=== PATIENT | male | born 1955 | race Caucasian/White ===

== ENCOUNTER 2017-02-26 17:22 | Inpatient (IN) | payer MEDICARE, OTHER ==
[~2017-02-26] VITALS: Ht 175.3 cm; Wt 83.6 kg
[~2017-02-26 17:22] MED LIST: CARB1TAB3 PO; CEPH-368 PO; HYDR-3240 PO; IBUP200C PO
[2017-02-26] MEDS ORDERED: CARBIDOPA/LEVODOPA 25 MG/250 MG TABLET PO ONE (18:00)
[2017-02-26] MEDS ORDERED: BISACODYL 10 MG SUPP PR PRN (20:00)
[2017-02-26] MEDS ORDERED: ACETAMINOPHEN 325 MG TABLET PO PRN (20:00)
[2017-02-26] MEDS ORDERED: CARBIDOPA/LEVODOPA 25 MG/250 MG TABLET PO SCH ×2 (21:00)
[2017-02-26] MEDS: ENOXAPARIN 40 MG/0.4 ML SQ SCH (21:28)
[2017-02-26] MEDS: HYDROcodone/APAP 5/325 TABLET PO PRN (21:33)
[2017-02-26 21:57] VITALS: BP 132/87
[2017-02-27] MEDS: CARBIDOPA/LEVODOPA 25 MG/250 MG TABLET PO SCH ×8 (00:25→21:16)
[2017-02-27 02:12] VITALS: BP 107/70
[2017-02-27 05:33] LABS: HEMOGLOBIN 14.3 g/dL (13.7-18.0)
[2017-02-27 05:43] LABS: ASPARTATE AMINO TRANSFERASE 14 U/L (15-37); BLOOD UREA NITROGEN 18 mg/dL (7-18)
[2017-02-27 07:42] VITALS: BP 110/73
[2017-02-27] MEDS: HYDROcodone/APAP 5/325 TABLET PO PRN ×3 (11:39→23:39)
[2017-02-27 13:01] VITALS: BP 110/69
[2017-02-27 19:00] VITALS: BP 118/76
[2017-02-27] MEDS: ENOXAPARIN 40 MG/0.4 ML SQ SCH (21:17)
[2017-02-28] MEDS: CARBIDOPA/LEVODOPA 25 MG/250 MG TABLET PO SCH ×10 (00:35→22:08)
[2017-02-28 02:40] VITALS: BP 121/82
[2017-02-28 07:28] VITALS: BP 105/88
[2017-02-28] MEDS: HYDROcodone/APAP 5/325 TABLET PO PRN ×3 (10:53→18:28)
[2017-02-28 13:20] VITALS: BP 130/77
[2017-02-28 19:36] VITALS: BP 112/73
[2017-02-28] MEDS: ENOXAPARIN 40 MG/0.4 ML SQ SCH (19:54)
[2017-03-01] MEDS: HYDROcodone/APAP 5/325 TABLET PO PRN ×5 (01:57→20:05)
[2017-03-01 02:45] VITALS: BP 115/73
[2017-03-01 05:43] LABS: HEMOGLOBIN 15.1 g/dL (13.7-18.0)
[2017-03-01 05:53] LABS: BLOOD UREA NITROGEN 16 mg/dL (7-18)
[2017-03-01] MEDS: CYCLOBENZAPRINE 10 MG TABLET PO PRN ×2 (05:54→16:42)
[2017-03-01 07:02] VITALS: BP 146/87
[2017-03-01] MEDS: CARBIDOPA/LEVODOPA 25 MG/250 MG TABLET PO SCH ×8 (08:15→21:50)
[2017-03-01 14:12] VITALS: BP 105/68
[2017-03-01 19:06] VITALS: BP 103/66
[2017-03-01] MEDS: ENOXAPARIN 40 MG/0.4 ML SQ SCH (20:06)
[2017-03-01] MEDS: DOCUSATE 100 MG CAPSULE PO PRN (20:11)
[2017-03-02 02:29] VITALS: BP 110/73
[2017-03-02] MEDS: HYDROcodone/APAP 5/325 TABLET PO PRN ×3 (06:16→21:38)
[2017-03-02] MEDS: CARBIDOPA/LEVODOPA 25 MG/250 MG TABLET PO SCH ×8 (07:34→22:00)
[2017-03-02 07:46] VITALS: BP 131/87
[2017-03-02] MEDS: CYCLOBENZAPRINE 10 MG TABLET PO PRN (12:20)
[2017-03-02 13:03] VITALS: BP 131/85
[2017-03-02 19:22] VITALS: BP 116/78
[2017-03-02] MEDS: ENOXAPARIN 40 MG/0.4 ML SQ SCH (20:16)
[2017-03-03 04:02] VITALS: BP 147/87
[2017-03-03 06:02] LABS: HEMOGLOBIN 15.1 g/dL (13.7-18.0)
[2017-03-03 06:14] LABS: BLOOD UREA NITROGEN 20 mg/dL (7-18)
[2017-03-03 07:43] VITALS: BP 157/97
[2017-03-03] MEDS: HYDROcodone/APAP 5/325 TABLET PO PRN ×2 (09:10→22:14)
[2017-03-03] MEDS: CARBIDOPA/LEVODOPA 25 MG/250 MG TABLET PO SCH ×8 (09:10→22:14)
[2017-03-03] MEDS: CYCLOBENZAPRINE 10 MG TABLET PO PRN (12:27)
[2017-03-03 15:27] VITALS: BP 109/73
[2017-03-03] MEDS: CARBIDOPA/LEVODOPA CR 25 MG/100 MG TABLET PO SCH ×2 (16:46→22:14)
[2017-03-03 19:36] VITALS: BP 103/71
[2017-03-03] MEDS: ENOXAPARIN 40 MG/0.4 ML SQ SCH (20:03)
[2017-03-03] MEDS: DOCUSATE 100 MG CAPSULE PO PRN (22:14)
[2017-03-04 02:08] VITALS: BP 114/74
[2017-03-04] MEDS: HYDROcodone/APAP 5/325 TABLET PO PRN ×2 (06:25→19:46)
[2017-03-04] MEDS: CARBIDOPA/LEVODOPA CR 25 MG/100 MG TABLET PO SCH ×3 (06:25→22:29)
[2017-03-04 07:45] VITALS: BP 132/85
[2017-03-04] MEDS: CARBIDOPA/LEVODOPA 25 MG/250 MG TABLET PO SCH ×8 (08:17→22:29)
[2017-03-04] MEDS: DOCUSATE 100 MG CAPSULE PO PRN (08:18)
[2017-03-04 13:52] VITALS: BP 117/80
[2017-03-04] MEDS: CYCLOBENZAPRINE 10 MG TABLET PO PRN (14:57)
[2017-03-04 19:15] VITALS: BP 105/68
[2017-03-04] MEDS: ENOXAPARIN 40 MG/0.4 ML SQ SCH (20:27)
[2017-03-05 02:09] VITALS: BP 106/65
[2017-03-05] MEDS: CARBIDOPA/LEVODOPA CR 25 MG/100 MG TABLET PO SCH ×3 (06:07→22:21)
[2017-03-05] MEDS: HYDROcodone/APAP 5/325 TABLET PO PRN ×2 (06:10→20:32)
[2017-03-05 07:10] VITALS: BP 117/80
[2017-03-05] MEDS: CARBIDOPA/LEVODOPA 25 MG/250 MG TABLET PO SCH ×7 (08:16→22:21)
[2017-03-05] MEDS: CYCLOBENZAPRINE 10 MG TABLET PO PRN ×2 (08:22→23:48)
[2017-03-05] MEDS: AZILECT 0.5 MG PO SCH (11:30)
[2017-03-05 14:14] VITALS: BP 108/79
[2017-03-05 19:49] VITALS: BP 114/69
[2017-03-05] MEDS: ENOXAPARIN 40 MG/0.4 ML SQ SCH (20:37)
[2017-03-06 01:43] VITALS: BP 120/77
[2017-03-06] MEDS: CARBIDOPA/LEVODOPA CR 25 MG/100 MG TABLET PO SCH ×3 (05:49→22:25)
[2017-03-06 07:01] VITALS: BP 102/66
[2017-03-06] MEDS: AZILECT 0.5 MG PO SCH (08:38)
[2017-03-06] MEDS: CARBIDOPA/LEVODOPA 25 MG/250 MG TABLET PO SCH ×8 (08:38→22:25)
[2017-03-06] MEDS: DOCUSATE 100 MG CAPSULE PO PRN ×2 (11:51→17:57)
[2017-03-06] MEDS: CYCLOBENZAPRINE 10 MG TABLET PO PRN (12:36)
[2017-03-06 13:47] VITALS: BP 113/71
[2017-03-06 19:05] VITALS: BP 112/73
[2017-03-06] MEDS: ENOXAPARIN 40 MG/0.4 ML SQ SCH (19:51)
[2017-03-07 00:35] VITALS: BP 112/71
[2017-03-07] MEDS: HYDROcodone/APAP 5/325 TABLET PO PRN (04:51)
[2017-03-07] MEDS: CARBIDOPA/LEVODOPA CR 25 MG/100 MG TABLET PO SCH ×3 (06:11→22:03)
[2017-03-07 07:29] VITALS: BP 128/82
[2017-03-07] MEDS: CARBIDOPA/LEVODOPA 25 MG/250 MG TABLET PO SCH ×8 (08:06→22:03)
[2017-03-07] MEDS: AZILECT 0.5 MG PO SCH (08:06)
[2017-03-07] MEDS: CYCLOBENZAPRINE 10 MG TABLET PO PRN ×2 (08:11→17:17)
[2017-03-07] MEDS ORDERED: POLYETHYLENE GLYCOL 17 GM PACKET NG PRN (11:00)
[2017-03-07] MEDS: SENNOSIDES 8.6 MG TABLET PO SCH (12:04)
[2017-03-07] MEDS: DOCUSATE 100 MG CAPSULE PO SCH (12:04)
[2017-03-07] MEDS: AZILECT 1 MG HOMEMEDPO SCH (12:30)
[2017-03-07 13:21] VITALS: BP 135/81
[2017-03-07 19:16] VITALS: BP 130/82
[2017-03-07] MEDS: ENOXAPARIN 40 MG/0.4 ML SQ SCH (19:41)
[2017-03-08 00:38] VITALS: BP 109/70
[2017-03-08] MEDS: HYDROcodone/APAP 5/325 TABLET PO PRN ×2 (05:54→21:45)
[2017-03-08] MEDS: CARBIDOPA/LEVODOPA CR 25 MG/100 MG TABLET PO SCH ×3 (05:54→20:49)
[2017-03-08 07:30] VITALS: BP 126/82
[2017-03-08] MEDS: CARBIDOPA/LEVODOPA 25 MG/250 MG TABLET PO SCH ×8 (08:17→22:13)
[2017-03-08] MEDS: DOCUSATE 100 MG CAPSULE PO SCH (08:17)
[2017-03-08] MEDS: AZILECT 1 MG HOMEMEDPO SCH (08:18)
[2017-03-08] MEDS: SENNOSIDES 8.6 MG TABLET PO SCH (08:18)
[2017-03-08 13:32] VITALS: BP 136/81
[2017-03-08 19:11] VITALS: BP 116/74
[2017-03-08] MEDS: ENOXAPARIN 40 MG/0.4 ML SQ SCH (20:50)
[2017-03-09 02:01] VITALS: BP 115/72
[2017-03-09] MEDS: CARBIDOPA/LEVODOPA CR 25 MG/100 MG TABLET PO SCH ×3 (06:20→22:02)
[2017-03-09 07:35] VITALS: BP 102/67
[2017-03-09] MEDS: CARBIDOPA/LEVODOPA 25 MG/250 MG TABLET PO SCH ×8 (08:40→23:30)
[2017-03-09] MEDS: DOCUSATE 100 MG CAPSULE PO SCH (08:40)
[2017-03-09] MEDS: CYCLOBENZAPRINE 10 MG TABLET PO PRN (08:40)
[2017-03-09] MEDS: AZILECT 1 MG HOMEMEDPO SCH (08:40)
[2017-03-09] MEDS: SENNOSIDES 8.6 MG TABLET PO SCH (08:42)
[2017-03-09 13:56] VITALS: BP 120/79
[2017-03-09 19:08] VITALS: BP 113/72
[2017-03-09] MEDS: ENOXAPARIN 40 MG/0.4 ML SQ SCH (19:36)
[2017-03-09] MEDS: HYDROcodone/APAP 5/325 TABLET PO PRN (21:25)
[2017-03-10 05:01] VITALS: BP 126/85
[2017-03-10] MEDS: CARBIDOPA/LEVODOPA CR 25 MG/100 MG TABLET PO SCH ×2 (05:54→14:16)
[2017-03-10] MEDS: CYCLOBENZAPRINE 10 MG TABLET PO PRN (05:57)
[2017-03-10 07:28] VITALS: BP 138/83
[2017-03-10] MEDS: HYDROcodone/APAP 5/325 TABLET PO PRN ×2 (07:31→17:56)
[2017-03-10] MEDS: CARBIDOPA/LEVODOPA 25 MG/250 MG TABLET PO SCH ×5 (07:31→17:53)
[2017-03-10] MEDS: SENNOSIDES 8.6 MG TABLET PO SCH (09:00)
[2017-03-10] MEDS: DOCUSATE 100 MG CAPSULE PO SCH (09:00)
[2017-03-10] MEDS: AZILECT 1 MG HOMEMEDPO SCH (09:00)
[2017-03-10 13:10] VITALS: BP 128/84
[2017-03-10] MEDS ORDERED: RASA1TAB PO (16:18)
[2017-03-10] MEDS ORDERED: POLY17PO5 PO (16:18)
[2017-03-10] MEDS ORDERED: ACET325T14 PO (16:49)
[2017-03-10] MEDS ORDERED: CARB1TAB47 PO (16:50)
[2017-03-10] MEDS ORDERED: CYCL5TAB PO (16:50)
[2017-03-10] MEDS ORDERED: DOCU100C8 PO (16:51)
[2017-03-10] MEDS ORDERED: SENN8.6T98 PO (16:51)
[2017-03-10] MEDS ORDERED: BISA10SU54 PR (16:52)
[2017-03-10] MEDS ORDERED: ENOX40SY4 SQ (16:52)
== END 2017-03-10 18:05 | DRG 948 ==
LOC: ED 19:32 → EDIP 19:33 → 3NE 19:54
PROVIDERS: ADMIT Internal Medicine
DX: R53.1 Weakness (principal); E87.1 Hypo-osmolality and hyponatremia; E44.0 Moderate protein-calorie malnutrition; G20 Parkinson's disease; F43.23 Adjustment disorder with mixed anxiety and depressed mood; F32.9 Major depressive disorder, single episode, unspecified; N20.9 Urinary calculus, unspecified; J44.9 Chronic obstructive pulmonary disease, unspecified; H04.122 Dry eye syndrome of left lacrimal gland; Z87.442 Personal history of urinary calculi; Z88.8 Allergy status to other drugs, medicaments and biological substances; Z68.27 Body mass index [BMI] 27.0-27.9, adult; Z80.1 Family history of malignant neoplasm of trachea, bronchus and lung
CPT/HCPCS: 36415; 80048; 80053; 81003; 83735; 84100; 84443; 85025; 93005; J1650; 92523-GN

== ENCOUNTER 2017-11-21 06:35 | Emergency (ER) | payer OTHER ==
[~2017-11-21] VITALS: Ht 175.3 cm; Wt 74.0 kg
[~2017-11-21 06:35] MED LIST changes: +ACET325T14 PO; +BISA10SU54 PR; +CARB1TAB47 PO; +CYCL5TAB PO; +DOCU100C33 PO; +ENOX40SY4 SQ; -IBUP200C PO; +IBUP200C5 PO; +POLY17PO5 PO; +RASA1TAB2 PO; +SENN8.6T98 PO
[2017-11-21] MEDS ORDERED: HYDROcodone/APAP 5/325 TABLET ONE ×2 (07:10→09:09)
[2017-11-21] MEDS ORDERED: HYDROcodone/APAP 5/325 TABLET PO ONE ×2 (07:30→09:30)
[2017-11-21 08:12] VITALS: BP 150/82
== END 2017-11-21 09:16 | disposition home or self-care (01) ==
LOC: ED 07:39
DX: M54.2 Cervicalgia (principal); M25.512 Pain in left shoulder; G20 Parkinson's disease
CPT/HCPCS: 93005; 99283

== ENCOUNTER 2018-06-09 14:00 | Emergency (ER) | payer OTHER ==
[~2018-06-09] VITALS: Ht 175.3 cm; Wt 67.9 kg
[2018-06-09 14:43] LABS: BASOPHILS # (AUTO) 0.05 x10^3/uL (0-0.1); BASOPHILS % (AUTO) 1 % (0-1); EOSINOPHILS # (AUTO) 0.13 x10^3/uL (0-0.4); EOSINOPHILS % (AUTO) 2 % (1-7); LYMPHOCYTES # (AUTO) 1.27 x10^3/uL (1-3.4); LYMPHOCYTES % (AUTO) 17 % (22-44); MD NO; MEAN CORPUSCULAR HEMOGLOBIN 33.2 pg (27.5-34.5); MEAN CORPUSCULAR HGB CONC 33.3 g/dL (33.2-36.2); MEAN CORPUSCULAR VOLUME 99.8 fL (81-97); MEAN PLATELET VOLUME 8.6 fL (7.4-10.4); MONOCYTES # (AUTO) 0.45 x10^3/uL (0.2-0.8); MONOCYTES % (AUTO) 6 % (2-9); NEUTROPHILS # (AUTO) 5.77 x10^3/uL (1.8-6.8); NEUTROPHILS % (AUTO) 75 % (42-75); PLATELET COUNT 220 x10^3/uL (130-400); RED BLOOD COUNT 4.79 x10^6/uL (4.38-5.82); RED CELL DISTRIBUTION WIDTH 13.6 % (9.4-14.8)
[2018-06-09 14:45] LABS: ALBUMIN 3.9 g/dL (3.4-5.0); ANION GAP 5 mmol/L (5-15); CHLORIDE 109 mmol/L (98-107)
[2018-06-09 14:50] LABS: ALANINE AMINOTRANSFERASE 16 U/L (12-78); ALKALINE PHOSPHATASE 119 U/L (45-117); BILIRUBIN,TOTAL 0.6 mg/dL (0.2-1.0); CREATININE 0.68 mg/dL (0.7-1.3); TOTAL PROTEIN 7.5 g/dL (6.4-8.2); TROPONIN I < 0.015 ng/mL (0.000-0.045)
[2018-06-09 16:06] VITALS: BP 134/88
[2018-06-14] MEDS ORDERED: SENN1TAB7 PO (11:28)
[2018-06-14] MEDS ORDERED: BISA10SU65 PR (11:28)
[2018-06-14] MEDS ORDERED: TAMS-11 PO (11:28)
[2018-06-14] MEDS ORDERED: DOCU-131 PO (11:28)
== END 2018-06-09 17:02 | disposition home or self-care (01) ==
LOC: ED 16:01
DX: R06.00 Dyspnea, unspecified (principal); I10 Essential (primary) hypertension
CPT/HCPCS: 36415; 71045; 80053; 83880; 84484; 85025; 85379; 93005; 99285

== ENCOUNTER 2018-07-12 18:35 | Inpatient (IN) | payer OTHER ==
[~2018-07-12] VITALS: Ht 175.3 cm; Wt 74.2 kg
[~2018-07-12 18:35] MED LIST changes: +BISA10SU65 PR; +DOCU-131 PO; +IBUP-1623 PO; -IBUP200C5 PO; +SENN1TAB7 PO; +TAMS-11 PO
[2018-07-12 19:07] LABS: BASOPHILS # (AUTO) 0.08 x10^3/uL (0-0.1); BASOPHILS % (AUTO) 1 % (0-1); EOSINOPHILS # (AUTO) 0.17 x10^3/uL (0-0.4); EOSINOPHILS % (AUTO) 2 % (1-7); LYMPHOCYTES # (AUTO) 0.73 x10^3/uL (1-3.4); LYMPHOCYTES % (AUTO) 9 % (22-44); MD NO; MEAN CORPUSCULAR HEMOGLOBIN 33.7 pg (27.5-34.5); MEAN CORPUSCULAR HGB CONC 34.2 g/dL (33.2-36.2); MEAN CORPUSCULAR VOLUME 98.8 fL (81-97); MEAN PLATELET VOLUME 8.3 fL (7.4-10.4); MONOCYTES # (AUTO) 0.54 x10^3/uL (0.2-0.8); MONOCYTES % (AUTO) 7 % (2-9); NEUTROPHILS # (AUTO) 6.23 x10^3/uL (1.8-6.8); NEUTROPHILS % (AUTO) 80 % (42-75); PLATELET COUNT 218 x10^3/uL (130-400); RED CELL DISTRIBUTION WIDTH 13.7 % (9.4-14.8)
[2018-07-12 19:14] LABS: ALANINE AMINOTRANSFERASE 12 U/L (12-78); ALBUMIN 3.4 g/dL (3.4-5.0); ANION GAP 9 mmol/L (5-15); CALCIUM 8.3 mg/dL (8.5-10.1); CHLORIDE 110 mmol/L (98-107); CREATININE 0.93 mg/dL (0.7-1.3)
[2018-07-12 19:16] LABS: ALKALINE PHOSPHATASE 74 U/L (45-117); BILIRUBIN,TOTAL 0.9 mg/dL (0.2-1.0); TOTAL PROTEIN 6.7 g/dL (6.4-8.2)
[2018-07-12 20:12] LABS: CULTURE INDICATED? YES; MICROSCOPIC INDICATED
[2018-07-12] MEDS ORDERED: CEFTRIAXONE PMX 1GM/50ML 50 ML ONE (21:50)
[2018-07-12] MEDS ORDERED: CEFTRIAXONE 1,000 MG in SODIUM CHLORIDE 0.9% 50 ML IV ONE (22:00)
[2018-07-12] MEDS ORDERED: LORazepam 2 MG/ML, 1ML ONE (22:04)
[2018-07-12] MEDS ORDERED: DEXTROSE 5% 100 ML IV SCH (22:30)
[2018-07-12] MEDS ORDERED: DOCUSATE 100 MG CAPSULE PO PRN (22:30)
[2018-07-12] MEDS: DEXTROSE 5% 1,000 ML IV SCH (22:30)
[2018-07-12] MEDS ORDERED: ONDANSETRON 2MG/ML, 2ML IVPush PRN (22:30)
[2018-07-12] MEDS ORDERED: BISACODYL 10 MG SUPP PR PRN (22:30)
[2018-07-12] MEDS ORDERED: ONDANSETRON ODT 4 MG PO PRN (22:30)
[2018-07-12] MEDS ORDERED: POTASSIUM CHLORIDE 20 MEQ TAB.ER.PRT PO ONE (22:30)
[2018-07-12] MEDS ORDERED: LORazepam 2 MG/ML, 1ML IVPush ONE (22:30)
[2018-07-12] MEDS: CARBIDOPA/LEVODOPA 25 MG/250 MG TABLET PO SCH (23:43)
[2018-07-12] MEDS: HEPARIN 5,000 UNITS/ML, 1ML SQ SCH (23:43)
[2018-07-12] MEDS: PHENAZOPYRIDINE 200 MG TABLET PO SCH (23:43)
[2018-07-13] VITALS: BP 129/79
[2018-07-13] MEDS: CARBIDOPA/LEVODOPA 25 MG/250 MG TABLET PO SCH ×11 (02:04→22:14)
[2018-07-13 02:33] VITALS: BP 148/79
[2018-07-13 05:55] LABS: CHLORIDE 109 mmol/L (98-107)
[2018-07-13] MEDS: HEPARIN 5,000 UNITS/ML, 1ML SQ SCH ×3 (06:03→22:14)
[2018-07-13 06:05] LABS: ANION GAP 8 mmol/L (5-15); CALCIUM 8.1 mg/dL (8.5-10.1); CREATININE 0.55 mg/dL (0.7-1.3)
[2018-07-13 07:57] VITALS: BP 112/71
[2018-07-13] MEDS: TAMSULOSIN 0.4 MG CAP.ER.24H PO SCH (08:04)
[2018-07-13] MEDS: PHENAZOPYRIDINE 200 MG TABLET PO SCH ×3 (08:04→20:20)
[2018-07-13] MEDS: SENNA/DOCUSATE TABLET PO SCH (08:04)
[2018-07-13] MEDS: DEXTROSE 5% 1,000 ML IV SCH (10:10)
[2018-07-13 13:59] VITALS: BP 110/70
[2018-07-13] MEDS: POTASSIUM CHLORIDE 20 MEQ TAB.ER.PRT PO SCH ×2 (14:04→18:00)
[2018-07-13] MEDS ORDERED: LORazepam 2 MG/ML, 1ML IVPush ONE (18:00)
[2018-07-13 18:42] VITALS: BP 111/71
[2018-07-13] MEDS ORDERED: DEXTROSE 5% 1,000 ML IV SCH (22:30)
[2018-07-14] MEDS: CARBIDOPA/LEVODOPA 25 MG/250 MG TABLET PO SCH ×12 (00:25→22:04)
[2018-07-14 01:22] VITALS: BP 135/81
[2018-07-14 05:56] LABS: ANION GAP 4 mmol/L (5-15); CALCIUM 8.3 mg/dL (8.5-10.1); CHLORIDE 111 mmol/L (98-107); CREATININE 0.58 mg/dL (0.7-1.3)
[2018-07-14] MEDS: HEPARIN 5,000 UNITS/ML, 1ML SQ SCH ×3 (06:33→22:05)
[2018-07-14] MEDS: SENNA/DOCUSATE TABLET PO SCH (08:10)
[2018-07-14] MEDS: TAMSULOSIN 0.4 MG CAP.ER.24H PO SCH (08:10)
[2018-07-14] MEDS: PHENAZOPYRIDINE 200 MG TABLET PO SCH ×3 (08:10→20:09)
[2018-07-14 08:44] VITALS: BP 104/64
[2018-07-14 13:49] VITALS: BP 104/63
[2018-07-14 19:55] VITALS: BP 113/73
[2018-07-15] MEDS: CARBIDOPA/LEVODOPA 25 MG/250 MG TABLET PO SCH ×9 (00:06→16:13)
[2018-07-15] MEDS: ACETAMINOPHEN 325 MG TABLET PO PRN ×2 (00:23→05:11)
[2018-07-15 00:52] VITALS: BP 127/76
[2018-07-15] MEDS: HEPARIN 5,000 UNITS/ML, 1ML SQ SCH (06:02)
[2018-07-15 07:07] VITALS: BP 120/76
[2018-07-15] MEDS: PHENAZOPYRIDINE 200 MG TABLET PO SCH ×2 (08:11→16:13)
[2018-07-15] MEDS: TAMSULOSIN 0.4 MG CAP.ER.24H PO SCH (08:11)
[2018-07-15] MEDS: SENNA/DOCUSATE TABLET PO SCH (08:12)
[2018-07-15] MEDS ORDERED: PHEN-583 PO (11:55)
[2018-07-15 12:13] VITALS: BP 104/64
== END 2018-07-15 16:35 | disposition home health service (06) | DRG 690 ==
LOC: ED 20:55 → EDIP 20:56 → 3NE 22:50
PROVIDERS: ADMIT Hospitalist; ATTEND Hospitalist
DX: N30.90 Cystitis, unspecified without hematuria (principal); E87.0 Hyperosmolality and hypernatremia; R33.9 Retention of urine, unspecified; E87.6 Hypokalemia; G20 Parkinson's disease; I10 Essential (primary) hypertension; K59.00 Constipation, unspecified; N40.0 Benign prostatic hyperplasia without lower urinary tract symptoms; Z87.442 Personal history of urinary calculi
CPT/HCPCS: 36415; 51702; 80048; 80053; 81001; 83735; 84100; 85025; 87086; 96374; 96375; 99285; J0696; J1644; J2060

== ENCOUNTER 2018-07-27 10:57 | Emergency (ER) | payer OTHER ==
[~2018-07-27] VITALS: Ht 175.3 cm; Wt 63.6 kg
[~2018-07-27 10:57] MED LIST changes: +PHEN-583 PO
[2018-07-27] MEDS ORDERED: SODIUM CHLORIDE 0.9% 1,000ML IVBOLUS ONE (11:30)
[2018-07-27] MEDS ORDERED: SODIUM CHLORIDE FLUSH 10ML SYR IVF ONE (11:30)
[2018-07-27 11:56] LABS: BASOPHILS # (AUTO) 0.03 x10^3/uL (0-0.1); BASOPHILS % (AUTO) 1 % (0-1); EOSINOPHILS # (AUTO) 0.08 x10^3/uL (0-0.4); EOSINOPHILS % (AUTO) 1 % (1-7); LYMPHOCYTES # (AUTO) 1.12 x10^3/uL (1-3.4); LYMPHOCYTES % (AUTO) 16 % (22-44); MD NO; MEAN CORPUSCULAR HEMOGLOBIN 33.1 pg (27.5-34.5); MEAN CORPUSCULAR HGB CONC 33.3 g/dL (33.2-36.2); MEAN CORPUSCULAR VOLUME 99.3 fL (81-97); MEAN PLATELET VOLUME 7.7 fL (7.4-10.4); MONOCYTES # (AUTO) 0.38 x10^3/uL (0.2-0.8); MONOCYTES % (AUTO) 5 % (2-9); NEUTROPHILS # (AUTO) 5.45 x10^3/uL (1.8-6.8); NEUTROPHILS % (AUTO) 77 % (42-75); PLATELET COUNT 266 x10^3/uL (130-400); RED BLOOD COUNT 4.48 x10^6/uL (4.38-5.82); RED CELL DISTRIBUTION WIDTH 14.3 % (9.4-14.8)
[2018-07-27 12:01] LABS: ALBUMIN 3.7 g/dL (3.4-5.0); ANION GAP 6 mmol/L (5-15); CALCIUM 9.1 mg/dL (8.5-10.1); CHLORIDE 108 mmol/L (98-107); CREATININE 0.61 mg/dL (0.7-1.3)
[2018-07-27 12:04] LABS: TROPONIN I < 0.015 ng/mL (0.000-0.045)
[2018-07-27] MEDS ORDERED: CARBIDOPA/LEVODOPA 25 MG/250 MG TABLET PO STA (12:12)
[2018-07-27] MEDS ORDERED: LORazepam 2 MG/ML, 1ML IVPush STA (12:12)
[2018-07-27] MEDS ORDERED: LORazepam 2 MG/ML, 1ML ONE (12:12)
[2018-07-27 12:23] LABS: CULTURE INDICATED? YES; MICROSCOPIC INDICATED
[2018-07-27] MEDS ORDERED: CEFDINIR 300 MG CAPSULE PO STA (12:59)
[2018-07-27] MEDS ORDERED: CEFDINIR 300 MG CAPSULE ONE (13:47)
[2018-07-27] MEDS ORDERED: LIDOCAINE 2%,20 ML JEL.PF.APP MM ONE (17:08)
[2018-07-27 19:09] VITALS: BP 142/76
== END 2018-07-27 19:14 | disposition home or self-care (01) ==
LOC: ED 11:30
DX: R55 Syncope and collapse (principal); N30.01 Acute cystitis with hematuria; E86.0 Dehydration; M62.838 Other muscle spasm
CPT/HCPCS: 36415; 51702; 71045; 80048; 81001; 82040; 84484; 85025; 87077; 87086; 93005; 96360; 96361; 99285; J2060; J7030; 87186

== ENCOUNTER 2018-11-08 19:18 | Emergency (ER) | payer OTHER ==
[~2018-11-08] VITALS: Ht 175.3 cm; Wt 70.0 kg
[~2018-11-08 19:18] MED LIST changes: -SENN1TAB7 PO; +SENN1TAB8 PO
[2018-11-08 19:27] VITALS: BP 133/85
== END 2018-11-08 20:32 | disposition home or self-care (01) ==
LOC: ED 20:20
DX: N40.1 Benign prostatic hyperplasia with lower urinary tract symptoms (principal); Z76.0 Encounter for issue of repeat prescription; G20 Parkinson's disease; I10 Essential (primary) hypertension
CPT/HCPCS: 99281

== ENCOUNTER 2019-06-15 17:24 | Inpatient (IN) | payer MEDICARE, OTHER ==
[~2019-06-15] VITALS: Ht 175.3 cm; Wt 73.2 kg
[2019-06-22 13:26] VITALS: BP 117/77
== END 2019-06-22 16:54 | disposition home health service (06) | DRG 57 ==
LOC: ED 20:38 → EDIP 20:55 → 3NE 21:30
PROVIDERS: ADMIT Family Medicine; ATTEND Family Medicine
DX: G20 Parkinson's disease (principal); N39.0 Urinary tract infection, site not specified; N40.0 Benign prostatic hyperplasia without lower urinary tract symptoms; I10 Essential (primary) hypertension; D75.89 Other specified diseases of blood and blood-forming organs; Z82.5 Family history of asthma and other chronic lower respiratory diseases; Z91.81 History of falling; Z87.442 Personal history of urinary calculi; Z80.1 Family history of malignant neoplasm of trachea, bronchus and lung; Z91.011 Allergy to milk products
CPT/HCPCS: 36415; 71045; 80053; 81001; 82607; 83690; 84439; 84443; 85025; 87077; 87086; 87186; 93005; 99285; G0378; J0696; J1644

== ENCOUNTER 2020-06-30 18:24 | Emergency (ER) | payer MEDICARE ==
[~2020-06-30] VITALS: Ht 175.3 cm; Wt 67.7 kg
[~2020-06-30 18:24] MED LIST changes: +SENN-177 PO; -SENN1TAB8 PO
[2020-06-30 18:26] VITALS: BP 117/78
== END 2020-06-30 19:26 | disposition home or self-care (01) ==
LOC: ED 19:18
DX: G20 Parkinson's disease (principal); Z76.0 Encounter for issue of repeat prescription; I10 Essential (primary) hypertension
CPT/HCPCS: 99281

== ENCOUNTER 2020-12-20 02:55 | Emergency (ER) | payer MEDICARE ==
[~2020-12-20] VITALS: Ht 175.3 cm; Wt 65.0 kg
[~2020-12-20 02:55] MED LIST changes: +HYDR-1067 PO; -HYDR-3240 PO
--- NOTE | 2020-12-20 03:11 | NUR ---
Patient presents to ER c/o bladder pain and penile pain. Patient had a valadez catheter for the last month but took it out himself yesterday. Patient states he was not getting any urine return and developed these pains. Patient has been seeing urology and was told he needs prostate surgery. Patient has obvious discomfort with movement. Respirations even and unlabored. Patient cannot move his extremities well at this time due to his Parkinson's. Patient states if he takes his meds, it will help him be able to move.
[2020-12-20] MEDS ORDERED: LIDOCAINE 2%,20 ML JEL.PF.APP MM ONE ×2 (03:30→03:36)
[2020-12-20 04:42] LABS: MICROSCOPIC INDICATED
--- NOTE | 2020-12-20 04:42 | NUR ---
BEDSIDE REPORT RECEIVED FROM WILFRIDO JAVIER
[2020-12-20 04:46] VITALS: BP 141/87
--- NOTE | 2020-12-20 04:47 | NUR ---
PT REPORTS DECREASED PAIN FOLLOWING NAYLOR INSERTION. "RELIEF OF PRESSURE IN MY ABD". PT DENIES ANY NEEDS AT THIS TIME. CALL LIGHT AND PERSONAL BELONGINGS WITHIN REACH. AT BEDSIDE
== END 2020-12-20 05:38 | disposition home or self-care (01) ==
LOC: ED 03:25
DX: N30.01 Acute cystitis with hematuria (principal); N40.1 Benign prostatic hyperplasia with lower urinary tract symptoms; R33.8 Other retention of urine; R10.9 Unspecified abdominal pain
CPT/HCPCS: 51702; 81001; 87086; 87186; 99284

== ENCOUNTER 2021-01-17 14:35 | Emergency (ER) | payer MEDICARE ==
[~2021-01-17] VITALS: Ht 175.3 cm; Wt 67.0 kg
[2021-01-17 14:37] VITALS: BP 113/71
[2021-01-17] MEDS ORDERED: HYDROcodone/APAP 5/325 TABLET ONE (14:44)
[2021-01-17] MEDS ORDERED: HYDROcodone/APAP 5/325 TABLET PO ONE (15:00)
--- NOTE | 2021-01-17 15:09 | NUR ---
RECEIVED REPORT FROM ROSAMARIA JAVIER. ASSUMING CARE AT THIS TIME. ROSAMARIA JAVIER AND THIS RN FLUSHED INDWELLING CATHETER AND PLACED NEW LEG BAG. INDWELLING CATHETER DRAINING. CHART UP FOR RECHECK.
--- NOTE | 2021-01-17 15:10 | NUR ---
CATHETER FLUSHED WITH 60 CC STERILE WATER, 60CC DRAINED. URINE ALSO DRAINING INTO LEG BAG. LEG BAG REPLACED WITH NEW BAG AND STRAPS. PT RESTING IN [facility], NO NEEDS AT THIS TIME. BEDSIDE REPORT GIVEN TO YAYA ARMANDO.
== END 2021-01-17 15:43 | disposition home or self-care (01) ==
LOC: ED 15:30
DX: N40.1 Benign prostatic hyperplasia with lower urinary tract symptoms (principal); R33.8 Other retention of urine; R31.9 Hematuria, unspecified; F17.210 Nicotine dependence, cigarettes, uncomplicated
CPT/HCPCS: 99283

== ENCOUNTER 2021-02-13 05:50 | Emergency (ER) | payer MEDICARE ==
[~2021-02-13] VITALS: Ht 175.3 cm; Wt 65.5 kg
[2021-02-13 05:56] VITALS: BP 119/77
[2021-02-13] MEDS ORDERED: LIDOCAINE 2%,20 ML JEL.PF.APP MM ONE ×2 (06:09→06:30)
--- NOTE | 2021-02-13 06:21 | NUR ---
assessment made. seen by PA. orders made. valadez catheter placed with good urine output. per patient he is much better now.
[2021-02-13 06:52] LABS: MICROSCOPIC INDICATED
--- NOTE | 2021-02-13 06:54 | NUR ---
report to Robert RN's
--- NOTE | 2021-02-13 06:57 | NUR ---
REPORT FROM HERSON. PT LAYING ON GRETCHEN, AT BS. NO NEEDS AT THIS TIME.
--- NOTE | 2021-02-13 07:34 | NUR ---
Patient given discharge instructions and they have confirmed that they understand the instructions. Patient ambulatory with steady gait.
[2021-02-14] MEDS ORDERED: SULF1TAB24 PO (16:28)
== END 2021-02-13 07:36 | disposition home or self-care (01) ==
LOC: ED 06:42
DX: N30.01 Acute cystitis with hematuria (principal); G20 Parkinson's disease; R33.9 Retention of urine, unspecified; I10 Essential (primary) hypertension; R10.9 Unspecified abdominal pain
CPT/HCPCS: 51702; 81001; 87086; 99284

== ENCOUNTER → 2021-02-14 | Outpatient (CLI) | payer MEDICARE ==
[~2021-02-14] MED LIST changes: +SULF1TAB24 PO
== END | disposition home or self-care (01) ==
LOC: STAR 15:41
PROVIDERS: ATTEND Student in an Organized Health Care Education/Training Program
DX: Z01.818 Encounter for other preprocedural examination (principal); N40.1 Benign prostatic hyperplasia with lower urinary tract symptoms; I45.10 Unspecified right bundle-branch block; Z20.822 Contact with and (suspected) exposure to COVID-19
CPT/HCPCS: 93005; U0003

== ENCOUNTER 2021-02-20 06:38 | Day surgery (SDC) | payer MEDICARE ==
[~2021-02-20] VITALS: Ht 175.3 cm; Wt 66.3 kg
[2021-02-20 07:14] VITALS: BP 114/75
[2021-02-20] MEDS ORDERED: CHLORHEXIDINE 15 ML UDC PO ONE (07:30)
[2021-02-20] MEDS ORDERED: LACTATED RINGERS 1,000 ML IV SCH (07:30)
[2021-02-20] MEDS ORDERED: FENTANYL PF 250 MCG/5ML ONE (08:37)
[2021-02-20] MEDS ORDERED: CEFAZOLIN 1,000 MG ONE (08:40)
[2021-02-20] MEDS ORDERED: NEOSTIGMINE 1 MG/ML, 10ML ONE (08:40)
[2021-02-20] MEDS ORDERED: PROPOFOL 10 MG/ML, 20ML ONE (08:40)
[2021-02-20] MEDS ORDERED: SUCCINYLCHOLINE 20 MG/ML, 10ML ONE (08:40)
[2021-02-20] MEDS ORDERED: ROCURONIUM 10 MG/ML,10ML ONE (08:40)
[2021-02-20] MEDS ORDERED: GLYCOPYRROLATE 0.2MG/1ML, 5ML ONE (08:40)
[2021-02-20] MEDS ORDERED: HYDROmorphone 1 MG/ML, 1ML INJ IVPush PRN (09:00)
[2021-02-20] MEDS ORDERED: LORazepam 2 MG/ML, 1ML IVPush PRN (09:00)
[2021-02-20] MEDS ORDERED: ONDANSETRON 2MG/ML, 2ML IVPush PRN (09:00)
[2021-02-20] MEDS ORDERED: METHOCARBAMOL 1,000 MG in DEXTROSE 5% 100 ML IV PRN (09:00)
[2021-02-20] MEDS ORDERED: OXYcodone 5 MG/5 ML ORAL.SOL UDC PO PRN (09:00)
[2021-02-20] MEDS ORDERED: hydrALAzine 20 MG/ML, 1ML IV PRN (09:00)
[2021-02-20] MEDS ORDERED: ACETAMINOPHEN 325 MG TABLET PO PRN (09:00)
[2021-02-20] MEDS ORDERED: EPHEDRINE 50 MG/ML, 1ML IVPush PRN (09:00)
[2021-02-20] MEDS ORDERED: LABETALOL 5MG/ML, 20ML IV PRN (09:00)
[2021-02-20] MEDS ORDERED: OPIUM/BELLADONNA SUPP.RECT 16.2-60 MG ONE (10:24)
[2021-02-20] MEDS ORDERED: OXYcodone 5 MG/5 ML ORAL.SOL UDC ONE (11:12)
[2021-02-20] MEDS ORDERED: FENTANYL PF 100 MCG/2ML ONE ×2 (11:12→11:23)
[2021-02-20] MEDS: FENTANYL PF 100 MCG/2ML IV PRN ×2 (11:15→11:20)
[2021-02-20] MEDS ORDERED: HYDROmorphone 1 MG/ML, 1ML INJ ONE (11:19)
== END 2021-02-20 14:00 | disposition home or self-care (01) ==
LOC: OUT 06:38
PROVIDERS: ATTEND Student in an Organized Health Care Education/Training Program
DX: N40.1 Benign prostatic hyperplasia with lower urinary tract symptoms (principal); N13.8 Other obstructive and reflux uropathy; R33.8 Other retention of urine; G20 Parkinson's disease; N39.0 Urinary tract infection, site not specified; Z79.899 Other long term (current) drug therapy; Z91.018 Allergy to other foods; Z87.442 Personal history of urinary calculi; Z80.1 Family history of malignant neoplasm of trachea, bronchus and lung
CPT/HCPCS: 52648; J0330; J0690; J1170; J2704; J2710; J3010; J7120